=== PATIENT | female | born 1995 | race Caucasian/White ===

== ENCOUNTER 2017-12-04 17:28 | Emergency (ER) | payer OTHER ==
[2017-12-04 17:59] LABS: KETONE, URINE AUTO RFX NEGATIVE (NEGATIVE); LEUKOCYTE ESTERASE UR AUTO RFX NEGATIVE (NEGATIVE); NITRITE, URINE AUTO RFX NEGATIVE (NEGATIVE); RBC, URINE AUTO RFX 1 /HPF (0-3); SPECIFIC GRAVITY UR AUTO RFX 1.006 (1.002-1.035); SQUAM EPITHELIAL CELL UR AURFX 1 /HPF (0-6); WBC, URINE AUTO RFX 2 /HPF (0-3)
[2017-12-04] MEDS: GASTROGRAFIN SOLUTION 30ML PO ×2 (20:30→21:00)
[2017-12-04] MEDS: KETOROLAC 30 MG/ML VIAL (J1885) IV (20:31)
[2017-12-04] MEDS: ONDANSETRON 4MG/2ML VIAL (J2405) IV (20:31)
[2017-12-04] MEDS: NS 1,000 ML IV (20:31)
[2017-12-04 20:35] LABS: BASO % 0.4 % (0.0-1.0); EOS % 0.4 % (0.0-3.0); HEMATOCRIT 32.7 % (36.0-47.0); HEMOGLOBIN 11.6 g/dl (12.0-15.5); IMMATURE GRANULOCYTE % 0.2 % (0-3.0); LYMPH # 2.2 10^3/uL (1.5-6.5); LYMPH % 26.3 % (24.0-44.0); MEAN CORPUSCULAR HEMOGLOBIN 30.2 pg (27.0-33.0); MEAN CORPUSCULAR HGB CONC 35.5 g/dl (32.0-36.5); MEAN CORPUSCULAR VOLUME 85.2 fl (80.0-96.0); MONO # 0.5 10^3/uL (0.0-0.8); MONO % 5.5 % (0.0-5.0); NEUTROPHILS # 5.5 10^3/uL (1.8-7.7); NEUTROPHILS % 67.2 % (36.0-66.0); PLATELET COUNT, AUTOMATED 202 10^3/uL (150-450); RED BLOOD COUNT 3.84 10^6/uL (4.00-5.40); RED CELL DISTRIBUTION WIDTH 12.2 % (11.5-14.5); WHITE BLOOD COUNT 8.2 10^3/uL (4.0-10.0)
[2017-12-04 20:58] LABS: ALBUMIN 4.1 GM/DL (3.2-5.2); ALBUMIN/GLOBULIN RATIO 1.14 (1.00-1.93); ALKALINE PHOSPHATASE 81 U/L (45-117); ALT/SGPT 22 U/L (12-78); ANION GAP 5 MEQ/L (8-16); AST/SGOT 21 U/L (7-37); BILIRUBIN,DIRECT 0.2 MG/DL (0.0-0.2); BILIRUBIN,TOTAL 0.7 MG/DL (0.2-1.0); BLOOD UREA NITROGEN 13 MG/DL (7-18); C REACTIVE PROTEIN QUANTITATIV < 0.30 MG/DL (0.00-0.30); CALCIUM LEVEL 8.8 MG/DL (8.5-10.1); CARBON DIOXIDE LEVEL 26 MEQ/L (21-32); CHLORIDE LEVEL 108 MEQ/L (98-107); CREATININE FOR GFR 0.59 MG/DL (0.55-1.30); GLUCOSE, FASTING 88 MG/DL (70-100); LIPASE 86 U/L (73-393); POTASSIUM SERUM 3.6 MEQ/L (3.5-5.1); SODIUM LEVEL 139 MEQ/L (136-145); TOTAL PROTEIN 7.7 GM/DL (6.4-8.2)
[2017-12-04] MEDS ORDERED: ISOVUE-370 76% 100ML VIAL (Q9967) As Ordered (22:20)
== END 2017-12-04 23:38 | disposition home or self-care (01) ==
LOC: M ED 17:28
DX: N83.201 Unspecified ovarian cyst, right side (principal)
CPT/HCPCS: Q9963

== ENCOUNTER 2018-02-16 12:31 | Emergency (ER) | payer OTHER ==
[2018-02-16] MEDS: NAPROXEN 250 MG TAB PO (14:59)
== END 2018-02-16 16:35 | disposition home or self-care (01) ==
LOC: M ED 12:31
DX: S80.01XA Contusion of right knee, initial encounter (principal); S80.02XA Contusion of left knee, initial encounter; X58.XXXA Exposure to other specified factors, initial encounter; Y92.9 Unspecified place or not applicable; Y93.9 Activity, unspecified; Y99.1 Military activity; Z91.018 Allergy to other foods
CPT/HCPCS: 73564

== ENCOUNTER 2018-11-26 09:41 | Outpatient (CLI) | payer OTHER ==
[~2018-11-26] VITALS: Ht 160 cm; Wt 69.0 kg
[~2018-11-26 09:41] MED LIST: HYDR-3715 PO; NAPR-837 PO
[2018-11-26] MEDS ORDERED: MAPA500T2 PO (10:04)
[2018-11-26 10:06] VITALS: BP 114/64
[2018-11-26 11:28] VITALS: BP 118/64
[2018-11-26 11:40] LABS: APPEARANCE, URINE CLEAR (CLEAR); BACTERIA, URINE AUTO NEGATIVE (NEGATIVE); BILIRUBIN, URINE AUTO NEGATIVE (NEGATIVE); BLOOD, URINE BLOOD NEGATIVE (NEGATIVE); COLOR, URINE STRAW (YELLOW); GLUCOSE, URINE (UA) AUTO NEGATIVE (NEGATIVE); KETONE, URINE AUTO NEGATIVE (NEGATIVE); LEUKOCYTE ESTERASE, URINE AUTO NEGATIVE (NEGATIVE); NITRITE, URINE AUTO NEGATIVE (NEGATIVE); PROTEIN, URINE AUTO NEGATIVE (NEGATIVE); RBC, URINE AUTO 0 /HPF (0-3); SPECIFIC GRAVITY URINE AUTO 1.003 (1.002-1.035); SQUAMOUS EPITHELIAL CELL UR AU 0 /HPF (0-6); UROBILINOGEN, URINE AUTO 0.2 mg/dL (0.0-2.0); WBC, URINE AUTO 0 /HPF (0-3)
== END 2018-11-26 13:00 | disposition home or self-care (01) ==
LOC: M LDO 09:41
PROVIDERS: ATTEND Obstetrics & Gynecology
DX: O26.893 Other specified pregnancy related conditions, third trimester (principal); M54.9 Dorsalgia, unspecified; R10.30 Lower abdominal pain, unspecified; O47.03 False labor before 37 completed weeks of gestation, third trimester; Z3A.31 31 weeks gestation of pregnancy
CPT/HCPCS: 59025; 81001; G0378; G0463

== ENCOUNTER 2018-12-13 10:11 | Emergency (ER) | payer OTHER ==
[~2018-12-13] VITALS: Ht 160 cm; Wt 64.5 kg
[~2018-12-13 10:11] MED LIST changes: +MAPA500T2 PO
[2018-12-13 11:39] LABS: BASO % 0.3 % (0.0-1.0); EOS % 0.4 % (0.0-3.0); HEMATOCRIT 31.5 % (36.0-47.0); HEMOGLOBIN 10.6 g/dl (12.0-15.5); LYMPH # 1.7 10^3/uL (1.5-6.5); MEAN CORPUSCULAR HEMOGLOBIN 29.6 pg (27.0-33.0); MEAN CORPUSCULAR HGB CONC 33.7 g/dl (32.0-36.5); MONO # 0.7 10^3/uL (0.0-0.8); MONO % 7.1 % (0.0-5.0); NEUTROPHILS # 6.8 10^3/uL (1.8-7.7); NEUTROPHILS % 73.1 % (36.0-66.0); PLATELET COUNT, AUTOMATED 192 10^3/uL (150-450); RED BLOOD COUNT 3.58 10^6/uL (4.00-5.40); WHITE BLOOD COUNT 9.3 10^3/uL (4.0-10.0)
[2018-12-13 12:17] LABS: ERYTHROCYTE SEDIMENTATION RATE 64 mm/hr (0-20)
[2018-12-13 12:22] LABS: ALT/SGPT 15 U/L (12-78); BILIRUBIN,DIRECT 0.1 MG/DL (0.0-0.2); BILIRUBIN,TOTAL 0.3 MG/DL (0.2-1.0); BLOOD UREA NITROGEN 7 MG/DL (7-18); C REACTIVE PROTEIN QUANTITATIV 0.52 MG/DL (0.00-0.30); CALCIUM LEVEL 9.2 MG/DL (8.5-10.1); CARBON DIOXIDE LEVEL 23 MEQ/L (21-32); CHLORIDE LEVEL 107 MEQ/L (98-107); CREATININE FOR GFR 0.52 MG/DL (0.55-1.30); FREE T4 0.88 NG/DL (0.76-1.46); GLOMERULAR FILTRATION RATE > 60.0 (>60); GLUCOSE, FASTING 74 MG/DL (70-100); MAGNESIUM LEVEL 2.2 MG/DL (1.8-2.4); POTASSIUM SERUM 3.7 MEQ/L (3.5-5.1); SODIUM LEVEL 137 MEQ/L (136-145); THYROID STIMULATING HORMONE 0.621 uIU/ML (0.358-3.740); TOTAL PROTEIN 7.1 GM/DL (6.4-8.2)
[2018-12-13 14:57] VITALS: BP 111/59
--- NOTE | 2018-12-14 05:36 | ECGEPIP ---
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
== END 2018-12-13 15:04 | disposition home or self-care (01) ==
LOC: M ED 10:11
DX: H53.9 Unspecified visual disturbance (principal)

== ENCOUNTER 2019-01-23 08:55 | Inpatient (IN) | payer OTHER ==
[~2019-01-23] VITALS: Ht 160 cm; Wt 72.0 kg
[2019-01-23 09:11] VITALS: BP 142/80
[2019-01-23] MEDS ORDERED: LACTATED RINGER'S 1000 ML IV STA (09:51)
[2019-01-23] MEDS ORDERED: LR 1,000 ML IV SCH (09:51)
--- NOTE | 2019-01-23 10:01 | HPEPDOC ---
Obstetrical History & Physical General Date of Admission Jan 23, 2019 at 09:44 History of Present Illness 23 yo at 39+3 weeks gestation presented to L&D with regular, painful contr actions that have been worsening since 0200 this AM. She denies any vaginal bleeding or leakage of fluid. She endorses excellent movement. is uncomplicated. 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 ABDOMEN: Gravid and non-tender to touch. FETUS: Is vertex (VTX) by sterile vaginal examination (SVE) EXTREMITIES: No edema. Laboratory Data Urine Culture: Escherichia (E.) Coli (s/p treatment) Pertinent Laboratoy Data Blood Type: O+ RBC Antibody Screen: Negative HIV: Negative Hepatitis B: Negative Hepatitis C: Unknown Rapid Plasma Reagin: Nonreactive Rubella: Immune Varicella: Immune Chlamydia/Gonorrhea: Negative Group B Streptococcus: Negative Quad Screen Test: Negative Cystic Fibrosis: Unknown Glucose Tolerance Test: 113 Anatomy Ultrasound Placenta Location: Anterior Normal Anatomy: Yes Placenta Previa: No Steroid Therapy Steroid Therapy: No Vaginal Examination Dilation: 5 cm Effacement: 80% Station: -1 Cervical Consistency: Soft Cervical Position: Middle Presentation: Cephalic presentation Position: Vertex (occiput) Assessment Heart Rate (FHR): 140 Variability: Moderate Accelerations: Positive Decelerations: None Tocometer Contractions: Yes Frequency: regular, every 1-3 min. Duration: greater than 60 seconds Strength: palpated as moderate, palpated as strong Assessment/Plan Assessment 23 yo at 39+3 weeks gestation presented to L&D in active labor. Plan Admit to L&D for expectant management of labor. Will augment as clinically indicated. Apply IV fluids. GBS negative. Clear liquid diet. Patient may have epidural if desired. Anticipate . DO TRISH Presley CHRISTOPHER J. DO Jan 23, 2019 10:01
[2019-01-23 10:30] LABS: HEMATOCRIT 30.3 % (36.0-47.0); HEMOGLOBIN 9.9 g/dl (12.0-15.5); MEAN CORPUSCULAR HGB CONC 32.7 g/dl (32.0-36.5); MEAN CORPUSCULAR VOLUME 82.6 fl (80.0-96.0); PLATELET COUNT, AUTOMATED 199 10^3/uL (150-450); RED BLOOD COUNT 3.67 10^6/uL (4.00-5.40)
[2019-01-23 10:59] VITALS: BP 127/73
[2019-01-23] MEDS ORDERED: FENTANYL 2MCG/ML ROPIVACAINE 0.2% IN 0.9% NACL 100ML IVBAG As Ordered ONE (11:23)
[2019-01-23] MEDS ORDERED: LACTATED RINGER'S 1000 ML IV PRN (14:00)
[2019-01-23] MEDS ORDERED: REFRIGERATOR IV KEYS XX PRN (14:00)
[2019-01-23] MEDS ORDERED: FENTANYL/ROPIVACAINE/NACL BAG 100 ML EPIDURAL SCH (14:00)
[2019-01-23] MEDS ORDERED: ONDANSETRON 4MG/2ML VIAL (J2405) IV PRN (14:00)
[2019-01-23] MEDS ORDERED: NALOXONE INJ 0.4 MG/1 ML VIAL (J2310) IV PRN (14:00)
[2019-01-23] MEDS ORDERED: diphenhydrAMINE INJ 50MG/ML VIAL (J1200) IV PRN (14:00)
[2019-01-23] MEDS ORDERED: EPIDURAL COMMENT XX SCH (14:00)
[2019-01-23] MEDS ORDERED: EPIDURAL/PCA KEYS XX PRN (14:00)
[2019-01-23] MEDS ORDERED: ePHEDrine SULFATE 25 MG/5 ML(5MG/ML) SYRINGE IV PRN (14:00)
--- NOTE | 2019-01-23 14:34 | IPNPDOC ---
Text Note Date of Service The patient was seen on 01/23/19. NOTE Presented to room for assessment of progress. SROM of clear fluid occurred at ~1300. She is comfortable with an epidural in place, though feels some pressure. Cervix: Al/C/+1. FHR Cat I. Patient progressing quite well on her own. 2nd stage likely starting soon. DO Marcus VS,Kailee, I+O VS, Kailee, I+O Laboratory Tests 01/23/19 10:11 Red Blood Count 3.67 L, Mean Corpuscular Volume 82.6, Mean Corpuscular Hemoglobin 27.0, Mean Corpuscular Hemoglobin Concent 32.7, Red Cell Distribution Width 14.6 H Vital Signs Date Time Temp Pulse Resp B/P (MAP) Pulse Ox O2 Delivery O2 Flow Rate FiO2 01/23/19 10:59 98.5 96 16 127/73 (91) ZAFAR CHAMBERS DO Jan 23, 2019 14:34
[2019-01-23] MEDS ORDERED: OXYTOCIN 30 UNITS IN 0.9% NaCl 500ML IV BAG (J2590) As Ordered ONE (15:50)
[2019-01-23] MEDS ORDERED: OXYTOCIN DRIP 30 UNITS in APPROPRIATE DILUENT 1 EA IV SCH (16:05)
--- NOTE | 2019-01-23 16:10 | DNPDOC ---
[facility] Delivery Note Delivery Note DATE OF DELIVERY: 23Jan2019 at ~1545 PREDELIVERY DIAGNOSIS: 39+3 weeks gestation and active labor POST DELIVERY DIAGNOSIS: Delivered. PROCEDURE: Spontaneous vaginal delivery PURCHASING COORDINATOR: Dr. Velazquez ANESTHESIA: Epidural ESTIMATED BLOOD LOSS: 200 mL. FINDINGS: Viable male , 7lbs 11oz (3500 grams), Apgars 8/9, loose nuchal cord X1 DELIVERY SUMMARY: Presented to room as patient felt strong urge to push. Fetus at +3 station. The bed was broken down and she was prepped for delivery. She began pushing and with excellent effort her delivered. presentation was DANIAL with restitution to LOT. There was a loose nuchal cord that was delivered through and reduced manually. The right anterior shoulder delivered with gentle traction followed easily by the remainder of the body. The was dried and stimulated on the field and a bulb suction was used. The was then placed on the maternal abdomen and cried vigorously. The three vessel cord was then clamped and cut by the FOB after appropriate time delay. Third stage was then completed with gentle traction on the cord and it was productive of an intact placenta. The uterine fundus was firmed with massage and pitocin was administered via IV bolus. Inspection of the vagina, perineum, and cervix revealed a midline 1st degree perineal laceration and bilateral sublabial abrasions. These were repaired in the usual fashion with 3- 0 vicryl suture. There was excellent cosmesis and hemostasis after the repair. The fundus was palpated again and was firm. Sponge, instrument, and needle counts were correct X2. Mother and stable when I left the room. DO TRISH Presley CHRISTOPHER J. DO Jan 23, 2019 16:10
[2019-01-23] MEDS ORDERED: PROMETHAZINE 25 MG TAB PO PRN (16:15)
[2019-01-23] MEDS ORDERED: ACETAMINOPHEN TAB 650MG DOSE (2X325MG) PO PRN (16:15)
[2019-01-23] MEDS ORDERED: MEASLES,MUMPS,RUBELLA VACCINE INJ (MMR-II) (90707) SC SCH (16:15)
[2019-01-23] MEDS ORDERED: RHOGAM 300 MCG (1500 IU) INJ (J2790) IM SCH (16:15)
[2019-01-23] MEDS ORDERED: DOCUSATE SODIUM 100 MG CAP PO PRN (16:15)
[2019-01-23] MEDS ORDERED: DIBUCAINE 1% OINTMENT 30GM TOP PRN (16:15)
[2019-01-23] MEDS ORDERED: ACETAMINOPHEN 500 MG TAB PO PRN (16:15)
[2019-01-23] MEDS ORDERED: IBUPROFEN 800 MG TAB PO PRN (16:15)
[2019-01-23] MEDS ORDERED: SLF 3 ML SYR IV PRN (17:15)
[2019-01-23 18:00] VITALS: BP 131/75
[2019-01-23] MEDS: IBUPROFEN 600 MG TAB PO PRN (19:24)
[2019-01-23] MEDS: SLF 3 ML SYR IV SCH (22:02)
[2019-01-24] MEDS: SLF 3 ML SYR IV SCH ×3 (06:00→22:00)
[2019-01-24 06:28] VITALS: BP 108/65
--- NOTE | 2019-01-24 07:09 | IPNPDOC ---
Progress Note Date of Service: Jan 24, 2019 Progress Note Ms. Huitron is a 23 yo G1 now P1 who is PPD#1 s/p uncomplicated yesterday afternoon at ~1515 after being admitted for active labor. She is recovering on the lopez. No acute events overnight. Perla reports feeling well this morning. She is ambulating, voiding, tolerating a regular diet, and has minimal lochia. She has minimal pain. Vitals - VSS, afebrile, normotensive, non tachycardic General - AAOX3, sitting up in bed, NAD, pleasant and conversant Abdomen - Fundus firm at U-2. No fundal tenderness Extremities - No edema UO - appropriate Perla is doing well and is making an appropriate recovery. Continue to encourage ambulation and . Continue routine care. Anticipate discharge home tomorrow. Zafar Velazquez DO VS, I&O, 24H, Fishbone Vital Signs/I&O Vital Signs Date Time Temp Pulse Resp B/P (MAP) Pulse Ox O2 Delivery O2 Flow Rate FiO2 01/24/19 06:28 98.1 96 18 108/65 (79) 01/23/19 18:00 99 I&O- Last 24 Hours up to 6 AM 01/24/19 06:00 Intake Total 2960 ml Output Total 900 ml Balance 2060 ml Laboratory Data 24H LABS Laboratory Tests 2 01/23/19 09:56: Serology Scanned Report Hepatitis B Testing 01/23/19 10:11: Nucleated Red Blood Cells % (auto) 0.0, Syphilis Serology NONREACTIVE CBC/BMP Laboratory Tests 01/23/19 10:11 Red Blood Count 3.67 L, Mean Corpuscular Volume 82.6, Mean Corpuscular Hemoglobin 27.0, Mean Corpuscular Hemoglobin Concent 32.7, Red Cell Distribution Width 14.6 H ZAFAR VELAZQUEZ DO Jan 24, 2019 07:09
[2019-01-24] MEDS: PRENATAL VITAMINS CHEWABLE TABLET PO SCH (10:49)
[2019-01-24] MEDS: IBUPROFEN 600 MG TAB PO PRN (15:19)
[2019-01-24 18:01] VITALS: BP 118/65
[2019-01-25] MEDS: SLF 3 ML SYR IV SCH (05:42)
[2019-01-25 06:00] VITALS: BP 134/69
[2019-01-25] MEDS ORDERED: COLA100C5 PO (07:11)
[2019-01-25] MEDS ORDERED: DIBU10OI TOP (07:11)
[2019-01-25] MEDS ORDERED: ACET-683 PO (07:11)
[2019-01-25] MEDS ORDERED: IBUP80TA PO (07:11)
[2019-01-25] MEDS: PRENATAL VITAMINS CHEWABLE TABLET PO SCH (09:18)
--- NOTE | 2019-01-25 17:52 | DSES ---
DATE OF ADMISSION: 01/23/2019 DATE OF DISCHARGE: 01/25/2019 A 23-year-old 1, admitted at 39 and 3 weeks of gestation with contractions. Had a spontaneous vaginal delivery with epidural in place, 7 pounds 11 ounces, 3500-gram male, scores of 8 and 9 at one and five minutes, respectively. Cord around the neck times one, loose. Epidural in place. Went well. On her second day, we discussed phlebitis, cystitis, mastitis, metritis, cellulitis, diet, excise pain management, and perineal, breast, and wound care. On examination today, her vital signs on discharge: Blood pressure 134/69, respirations 18, pulse 97, temperature is 98.7. Her admitting hemoglobin was 9.9, hematocrit 30.3, and platelets are 199. She is asymptomatic. The rest of the examination unremarkable. She is normocephalic, atraumatic. Neck: Full range of motion. Pupils equal and reactive to light. Distal pulses are symmetric. No evidence of deep vein thrombosis (DVT) pulmonary embolism (PE), or superficial phlebitis. Chest is clear bilaterally to bases. No wheezes or rhonchi. No costovertebral angle (CVA) tenderness. Abdomen soft. Uterus 2 below. Lochia is moderate. Four-quadrant bowel sounds are noted. Perineum is intact. She has no rashes, lesions, or pruritus. No arthralgia. The complaint of cough, wheezes, shortness of breath, or dyspnea on exertion. She has no urgency, frequency, nausea, vomiting, diarrhea, or constipation. In summary, we have a term gestation delivered a live- male infant. She is doing well with breast-feeding. She plans to have a 6-week checkup with [facility]. Medication will be dispensed if available, as [facility] is closed as far as pharmacy for the next 4 days. All questions were answered. A 20-minute discussion.
--- NOTE | 2019-01-27 14:59 | IPN ---
DATE: 01/24/2019 This patient requested circumcision of her male . After discussing risks and benefits of circumcision medical and nonmedical indications, penile block and aftercare. They expressed understanding of penile block, aftercare and bleeding. Signed the consent form. 20-minute discussion. All questions were answered. We await the clearance by the rejected items clerk.
== END 2019-01-25 10:50 | disposition home or self-care (01) | DRG 807 ==
LOC: M LDO 08:55 → M LDI 09:44 → M OBS 18:22
PROVIDERS: ADMIT Obstetrics & Gynecology; ATTEND Obstetrics & Gynecology
PROC: 10E0XZZ Delivery of Products of Conception, External Approach (ICD-10-PCS; principal; 2019-01-23)
PROC: 0HQ9XZZ Repair Perineum Skin, External Approach (ICD-10-PCS; 2019-01-23)
DX: O69.81X0 Labor and delivery complicated by cord around neck, without compression, not applicable or unspecified (principal); Z37.0 Single live birth; Z3A.39 39 weeks gestation of pregnancy; O70.0 First degree perineal laceration during delivery

== ENCOUNTER 2019-02-24 00:56 | Emergency (ER) | payer OTHER ==
[~2019-02-24] VITALS: Ht 160 cm; Wt 61.4 kg
[2019-02-24 00:56] VITALS: BP 143/87
[~2019-02-24 00:56] MED LIST changes: +ACET-683 PO; +COLA100C5 PO; +DIBU10OI TOP; +IBUP80TA PO
[2019-02-24] MEDS ORDERED: NS 1,000 ML IV ONE (01:30)
[2019-02-24 01:45] LABS: BASO % 0.7 % (0.0-1.0); EOS # 0.1 10^3/uL (0.0-0.5); EOS % 2.1 % (0.0-3.0); HEMATOCRIT 33.8 % (36.0-47.0); HEMOGLOBIN 10.8 g/dl (12.0-15.5); LYMPH # 2.4 10^3/uL (1.5-5.0); LYMPH % 38.5 % (24.0-44.0); MEAN CORPUSCULAR HEMOGLOBIN 26.6 pg (27.0-33.0); MEAN CORPUSCULAR VOLUME 83.3 fl (80.0-96.0); MONO # 0.4 10^3/uL (0.0-0.8); MONO % 5.9 % (0.0-5.0); NEUTROPHILS # 3.2 10^3/uL (1.5-8.5); NEUTROPHILS % 52.6 % (36.0-66.0); PLATELET COUNT, AUTOMATED 225 10^3/uL (150-450); RED BLOOD COUNT 4.06 10^6/uL (4.00-5.40); WHITE BLOOD COUNT 6.1 10^3/uL (4.0-10.0)
[2019-02-24 02:22] LABS: ALBUMIN 3.9 GM/DL (3.2-5.2); ALT/SGPT 23 U/L (12-78); BILIRUBIN,DIRECT 0.1 MG/DL (0.0-0.2); BILIRUBIN,TOTAL 0.3 MG/DL (0.2-1.0); BLOOD UREA NITROGEN 14 MG/DL (7-18); CALCIUM LEVEL 9.4 MG/DL (8.5-10.1); CARBON DIOXIDE LEVEL 26 MEQ/L (21-32); CHLORIDE LEVEL 104 MEQ/L (98-107); CREATININE FOR GFR 0.75 MG/DL (0.55-1.30); GLOMERULAR FILTRATION RATE > 60.0 (>60); GLUCOSE, FASTING 104 MG/DL (70-100); POTASSIUM SERUM 3.8 MEQ/L (3.5-5.1); SODIUM LEVEL 141 MEQ/L (136-145); TOTAL PROTEIN 7.6 GM/DL (6.4-8.2)
--- NOTE | 2019-02-25 08:23 | ECGEPIP ---
[facility] - ED Test Date: 2019-02-24 Pat Name: MAMTA TORRES Department: Room: - Gender: Female Primary Care Coordinator: sharmaine : 1995 Requested By: YASMEEN BLAND Order Number: [id number] Reading MD: Nhung Sanders Measurements Intervals [place] Rate: 64 P: 9 [place]: 134 QRS: 40 QRSD: 73 T: 34 QT: 411 QTc: 426 Interpretive Statements SINUS RHYTHM DECREASED RATE 12/13/18 Electronically Signed on 02-25-2019 8:23:06 EDT by Nhung Sanders
== END 2019-02-24 02:47 | disposition home or self-care (01) ==
LOC: M ED 00:56
DX: I95.1 Orthostatic hypotension (principal); Z91.018 Allergy to other foods

== ENCOUNTER 2019-06-26 10:07 | Day surgery (SDC) | payer OTHER ==
[~2019-06-26] VITALS: Ht 157.5 cm; Wt 53.1 kg
[~2019-06-26 10:07] MED LIST changes: +LR 1,000 ML IV SCH
[2019-06-26 11:18] LABS: HCG, SERUM QUALITATIVE NEGATIVE (NEGATIVE)
[2019-06-26] MEDS ORDERED: LIDOCAINE 2% INJ 100 MG/5 ML SDV (FOR ANES.) As Ordered ONE (11:19)
[2019-06-26] MEDS ORDERED: ONDANSETRON 4MG/2ML VIAL (J2405) As Ordered ONE (11:19)
[2019-06-26] MEDS ORDERED: MIDAZOLAM INJ 2 MG/2 ML VIAL (J2250) As Ordered ONE (11:19)
[2019-06-26] MEDS ORDERED: propofoL 200 MG/20 ML VIAL As Ordered ONE ×2 (11:19→12:34)
[2019-06-26] MEDS ORDERED: fentaNYL 100 MCG/2 ML INJECTION (J3010) As Ordered ONE (11:20)
[2019-06-26] MEDS ORDERED: IODINE STRONG SOLN 15 ML BTL As Ordered ONE (11:56)
[2019-06-26] MEDS ORDERED: BUPIVACAINE/EPIN 0.25% 30 ML VIAL As Ordered ONE (12:16)
[2019-06-26] MEDS ORDERED: KETOROLAC 60 MG/2 ML VIAL (J1885) As Ordered ONE (12:30)
[2019-06-26 13:30] VITALS: BP 109/59
[2019-06-26] MEDS ORDERED: fentaNYL 100 MCG/2 ML INJECTION (J3010) IV PRN (13:30)
[2019-06-26] MEDS ORDERED: HYDROMORPHONE HCL 0.5 MG/ 0.5 ML SYRINGE (J1170 PER 1) IV PRN (13:30)
[2019-06-26] MEDS ORDERED: LR 1,000 ML IV SCH (13:30)
[2019-06-26] MEDS ORDERED: PERCOCET 5MG/325MG TAB PO PRN (13:30)
[2019-06-26] MEDS ORDERED: ONDANSETRON 4MG/2ML VIAL (J2405) IV PRN (13:30)
--- NOTE | 2019-06-26 13:44 | POST-OPPD ---
Postoperative Procedure Note Date Of Procedure: Jun 26, 2019 PREOPERATIVE DIAGNOSIS: high grade cervical dysplasia POSTOPERATIVE DIAGNOSIS: shanon FINDINGS: decreased lugols uptake at posterior cervix. PROCEDURE: LEEP SURGEON: Bridget Barker, [place] ANESTHESIA: MAC SPECIMENS: LEEP specimen, ECC ESTIMATED BLOOD LOSS: 10cc REPLACED: LR 700cc DRAINS: none COMPLICATIONS: none POSTOPERATIVE CONDITION: stable Detail procedure note: Indications: Patient is a 23 yo with High Grade squamous intraepithelial lesion. Patient did not tolerate colposcopy well and desires to have LEEP procedure under sedation. Material to lab: LEEP specimen, ECC Description of procedure: The risks, benefits, indications and alternatives of the procedure were reviewed with the patient and informed consent was obtained. Risk of bleeding, infection, pain, need for repeat procedure, increased risk of delivery discussed with patient. She expresses understanding and desires to proceed. Patient was brought to OR with IV running. Patient placed under monitored conscious sedation. Placed in lithotomy position. Vaginal and perineum prepped and draped. An insulated speculum placed in the vagina and cervix identified. Transformation zone visualized. Paracervical block performed using Marcain 0.25% with epi (10cc used). Parous appearing cervix. Lugos applied. Decreased uptake noted posterior transformation zone. Loop caudery size [id number] used. Power set to 60/60. Posterior to anterior pass x 2, one for the posterior and second pass for anterior cervix. Cervix cauderized thoroughly, hemostatic. ECC performed and cytobrush used to collect specimen. Monsels placed. All instruments removed from vagina. Count correct x 2. DO BERLIN Barker LUAT N. DO Jun 26, 2019 13:35
== END 2019-06-26 14:00 | disposition home or self-care (01) ==
LOC: M SDC 10:07
PROVIDERS: ATTEND Obstetrics & Gynecology
DX: N87.0 Mild cervical dysplasia (principal); Z91.018 Allergy to other foods
CPT/HCPCS: 36415; 57522; 84703; 88305; 88307; J1885; J2250; J2405; J3010

== ENCOUNTER 2019-11-15 08:34 | Emergency (ER) | payer OTHER ==
[~2019-11-15] VITALS: Ht 160 cm; Wt 50.0 kg
[~2019-11-15 08:34] MED LIST changes: -LR 1,000 ML IV SCH
[2019-11-15] MEDS ORDERED: ONDANSETRON 4MG/2ML VIAL IV ONE (09:30)
[2019-11-15] MEDS ORDERED: NS 1,000 ML IV ONE (09:30)
[2019-11-15 09:43] LABS: BASO % 0.6 % (0.0-1.0); EOS % 0.8 % (0.0-3.0); HEMATOCRIT 35.7 % (36.0-47.0); LYMPH % 41.1 % (24.0-44.0); MEAN CORPUSCULAR HEMOGLOBIN 28.8 pg (27.0-33.0); MEAN CORPUSCULAR HGB CONC 33.6 g/dl (32.0-36.5); MEAN CORPUSCULAR VOLUME 85.8 fl (80.0-96.0); MONO # 0.3 10^3/uL (0.0-0.8); MONO % 5.9 % (0.0-5.0); NEUTROPHILS # 2.5 10^3/uL (1.5-8.5); NEUTROPHILS % 51.4 % (36.0-66.0); PLATELET COUNT, AUTOMATED 225 10^3/uL (150-450); RED BLOOD COUNT 4.16 10^6/uL (4.00-5.40); WHITE BLOOD COUNT 4.9 10^3/uL (4.0-10.0)
--- NOTE | 2019-11-15 10:24 | REP ---
RIGHT LOWER QUADRANT SONOGRAPHY: HISTORY: Concern for appendicitis. Right lower quadrant pain. FINDINGS: Scanning through the right lower quadrant is performed. The cecum and peristalsing small bowel are visualized. The appendix could not be directly visualized. Tenderness and rebound type tenderness was elicited in the right lower quadrant to scanning pressure. A normal right ovary is seen measuring 2.3 x 2.1 x 1.5 cm with the Doppler blood flow. No evidence of abscess free fluid or adenopathy. IMPRESSION: The appendix is not directly visualized. Pain and tenderness in the right lower quadrant with transducer pressure. Normal ovary is seen. Electronically Signed by Jonah Morales MD 11/15/2019 12:48 P
[2019-11-15 10:25] LABS: ALBUMIN 4.3 GM/DL (3.2-5.2); BILIRUBIN,DIRECT 0.2 MG/DL (0.0-0.2); BILIRUBIN,TOTAL 0.8 MG/DL (0.2-1.0); TOTAL PROTEIN 7.7 GM/DL (6.4-8.2)
[2019-11-15] MEDS: GASTROGRAFIN SOLUTION 30ML PO SCH ×2 (11:33→12:03)
[2019-11-15] MEDS ORDERED: ISOVUE-370 76% 100ML VIAL As Ordered ONE (12:00)
[2019-11-15] MEDS ORDERED: KETOROLAC 30 MG/ML 1ML VIAL IV ONE (12:30)
[2019-11-15 14:45] VITALS: BP 117/64
--- NOTE | 2019-11-15 14:49 | REP ---
CT ABDOMEN AND PELVIS WITH IV AND ORAL CONTRAST: HISTORY: Right lower quadrant pain rule out appendicitis. Comparison CT study is from December 04, 2017. CT CONTRAST DOSE: 100 mL of intravenous Isovue 370. 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 Normal bowel gas pattern. The lung bases are clear on axial CT images. The liver and the spleen are normal in size homogeneous in texture. Normal adrenal glands are seen bilaterally. There is no abnormality in the gallbladder or pancreas. The kidneys enhance symmetrically and are morphologically intact. No retroperitoneal mass or adenopathy is seen. Small and large bowel loops are normal in the upper abdomen. Pelvic images demonstrate a normal non-inflamed appendix which is opacified with orally administered contrast. This is seen medially to the cecum in the right lower quadrant. Urinary bladder is intact. No uterine or ovarian abnormality is seen. There is no evidence of free intraperitoneal fluid or free intraperitoneal air. No pelvic mass or adenopathy is seen. No abdominal wall defect is observed. Bone window settings show no bony destructive lesion. IMPRESSION: Negative CT study abdomen pelvis. Normal appendix is seen. No acute abnormality. Electronically Signed by Jonah Morales MD 11/15/2019 05:44 P
== END 2019-11-15 14:53 | disposition home or self-care (01) ==
LOC: M ED 08:34
DX: R10.31 Right lower quadrant pain (principal)
CPT/HCPCS: 74177; 76857; 80047; 80076; 83690; 84702; 85025; 96361; 96374; 96375; 99284; J1885; J2405; Q9963; Q9967